=== PATIENT | male | born 1985 | race Caucasian/White ===

== ENCOUNTER 2021-11-18 10:39 | Emergency (ER) | payer OTHER ==
[2021-11-18] MEDS ORDERED: KEPPRA500 MG PO (11:46)
== END 2021-11-18 11:45 | disposition home or self-care (01) ==
LOC: ER1 10:39
DX: Z76.0 Encounter for issue of repeat prescription (principal); G40.909 Epilepsy, unspecified, not intractable, without status epilepticus; K21.9 Gastro-esophageal reflux disease without esophagitis; Z88.0 Allergy status to penicillin
CPT/HCPCS: 99281

== ENCOUNTER 2022-04-10 17:45 | Inpatient (IN) | payer OTHER ==
[~2022-04-10] VITALS: Ht 193 cm; Wt 105.9 kg
[~2022-04-10 17:45] MED LIST: KEPPRA500 MG PO
[2022-04-10 19:01] LABS: HEMOGLOBIN 16.2 gm/dl (14.0-17.5); RED BLOOD COUNT 5.15 M/UL (4.20-5.50); WHITE BLOOD COUNT 5.3 K/UL (4.5-11.0)
[2022-04-10 19:25] LABS: BUN/CREATININE RATIO 9 (0-10)
[2022-04-11] MEDS ORDERED: GABAPENTIN400 MG PO (00:28)
[2022-04-11] MEDS ORDERED: SEROQUEL50 MG PO (00:28)
[2022-04-11 02:24] LABS: WHITE BLOOD COUNT 4.4 K/UL (4.5-11.0)
[2022-04-11 02:25] LABS: HEMOGLOBIN 13.3 gm/dl (14.0-17.5); RED BLOOD COUNT 4.36 M/UL (4.20-5.50)
[2022-04-11 02:45] LABS: BUN/CREATININE RATIO 12 (0-10)
[2022-04-11] MEDS ORDERED: IBU800 MG PO (09:30)
[2022-04-11] MEDS ORDERED: OMEPRAZOLE40 MG PO (09:31)
[2022-04-11 15:30] LABS: HEMOGLOBIN 13.5 gm/dl (14.0-17.5); RED BLOOD COUNT 4.47 M/UL (4.20-5.50); WHITE BLOOD COUNT 3.6 K/UL (4.5-11.0)
[2022-04-11 15:58] LABS: BUN/CREATININE RATIO 11 (0-10)
[2022-04-12 02:17] LABS: HEMOGLOBIN 13.7 gm/dl (14.0-17.5); RED BLOOD COUNT 4.47 M/UL (4.20-5.50); WHITE BLOOD COUNT 3.3 K/UL (4.5-11.0)
[2022-04-12 02:47] LABS: BUN/CREATININE RATIO 13 (0-10)
[2022-04-13 03:39] LABS: HEMOGLOBIN 14.1 gm/dl (14.0-17.5); RED BLOOD COUNT 4.59 M/UL (4.20-5.50)
[2022-04-13 03:48] LABS: WHITE BLOOD COUNT 4.6 K/UL (4.5-11.0)
[2022-04-13 04:17] LABS: BUN/CREATININE RATIO 13 (0-10)
[2022-04-13] MEDS ORDERED: KEPPRA500 MG PO (12:50)
[2022-04-13] MEDS ORDERED: THIAMINE HCL100 MG PO (12:54)
[2022-04-13] MEDS ORDERED: LIBRIUM CAP 2525 MG PO (12:54)
[2022-04-16 05:07] LABS: HBSAG SCREEN Negative (Negative); HEPATITIS B SURF AB QUANT >1000.0 mIU/mL (Immunity>9.9)
== END 2022-04-13 16:09 | disposition home or self-care (01) | DRG 897 ==
LOC: ER1 17:45 → CDU 21:27 → PROG CARE 21:27
PROVIDERS: Emergency Medicine; Family Medicine; Internal Medicine; ADMIT Internal Medicine
PROC: HZ2ZZZZ Detoxification Services for Substance Abuse Treatment (ICD-10-PCS; principal; 2022-04-10)
DX: F10.239 Alcohol dependence with withdrawal, unspecified (principal); G40.909 Epilepsy, unspecified, not intractable, without status epilepticus; R74.01 Elevation of levels of liver transaminase levels; F41.9 Anxiety disorder, unspecified; Z20.822 Contact with and (suspected) exposure to COVID-19; K70.9 Alcoholic liver disease, unspecified; R07.89 Other chest pain; Z88.1 Allergy status to other antibiotic agents; Z91.048 Other nonmedicinal substance allergy status; Z79.899 Other long term (current) drug therapy
CPT/HCPCS: 36415; 80053; 80307; 81001; 82550; 82553; 83690; 83735; 84484; 85025; 86317; 87340; 93005; 96374; 96375; 96376; 99285; G0480; J0780; J1650; J2250; J2405; J3411; J3475; J7030; U0002